=== PATIENT | female | born 1970 | race Caucasian/White ===

== ENCOUNTER 2022-05-02 19:18 | Emergency (ER) | payer OTHER, SELFPAY ==
--- NOTE | 2022-05-02 19:20 | XRR_ITS ---
PROCEDURE INFORMATION: Exam: XR Right Knee Exam date and time: 05/02/2022 7:37 PM Age: 51 years old Clinical indication: Injury or trauma; Fall; Other: Merrick a pop in her knee while she was breaking up a dog fight. Cant put weight on it TECHNIQUE: Imaging protocol: Radiologic exam of the Right knee. Views: 3 views. COMPARISON: No relevant prior studies available. FINDINGS: Bones/joints: Mild tricompartmental osteoarthritis of the knee. Soft tissues: Normal. XR/XR knee RT 3V* [id number] IMPRESSION: 1. Negative for fracture or dislocation 2. Mild tricompartmental osteoarthritis of the knee.
[2022-05-02 19:21] VITALS: BP 153/87; PULSE 95; RESP 20; TEMP 36.4; O2SAT 96; BMI 41.1
[2022-05-02] MEDS: HYDROcodone-acetaminophen 7.5-325 mg Tablet 1 TAB PO (20:50)
--- NOTE | 2022-05-02 20:50 | W.ED.EXTPRO ---
HPI - Extremity Problem General: Chief complaint: Extremity Injury, Lower Stated complaint: Rt Knee Popped\Pain\Panic Attacks Time Seen by Provider: 05/02/22 19:51 History of Present Illness: Patient is a 51-year-old female comes to the ED with right knee injury. Patient has some underlying right knee pain before injury today. She states she was trying to break up a fight between dogs and she twisted her right knee and now she has 10 out of 10 pain in her right knee. Pain is located on the lateral aspect of knee. She cannot weight-bear on the knee due to pain. Associated symptoms: Deny chest pain, fever(s) or rash Review of Systems Const: Denies: fever(s), chills or fatigue Eyes: Denies: change in vision or eye discomfort ENMT: Denies: throat pain, odynophagia, nasal discharge or nasal congestion Card: Denies: chest pain, palpitations, edema, swelling of feet/ankles, dyspnea on exertion or orthopnea Resp: Denies: dyspnea, productive cough or non-productive cough GI: Denies: abdominal pain, nausea, vomiting, diarrhea, constipation or hematochezia : Denies: flank pain, dysuria or hematuria Musc: Reports: extremity pain (Right knee) and limited range of motion (Right knee); Denies: neck pain, back pain or extremity swelling Skin/Breast: Denies: rash or new lesions Neuro: Denies: headache(s), numbness in extremities or weakness in extremities [facility] ED PFSH: Medical History (Updated 05/03/22 @ 00:55 by YURY Kat) No pertinent family history Surgical History (Updated 05/03/22 @ 00:55 by YURY Kat) No pertinent past surgical history Physical Exam Const: COMMON NORMALS: patient oriented x3 and alert GENERAL APPEARANCE: cooperative HENMT: COMMON NORMALS: normocephalic HEAD & SCALP: normocephalic MOUTH: Normal oral and palatal mucosa present THROAT: posterior oropharynx normal and uvula midline Neck/C-Spine: COMMON NORMALS: supple GENERAL: Yes normal visual inspection Resp: COMMON NORMALS: normal respiratory effort, No retractions, No use of accessory muscles and clear to auscultation bilaterally AUSCULTATION: clear to auscultation bilaterally Cardio: COMMON NORMALS: regular rate, regular rhythm, S1 normal heart sound present, S2 normal heart sound present, No gallops present (Cardio), No clicks present (Cardio), No murmurs present (Cardio) and Peripheral pulses 2+ throughout RATE: regular rate RHYTHM: regular rhythm HEART SOUNDS: S1 normal heart sound present and S2 normal heart sound present PERIPHERAL PULSES: Peripheral pulses 2+ throughout GI: COMMON NORMALS: Normal to inspection, nondistended, normoactive bowel sounds present, Soft to palpation, non-tender and no masses PALPATION: Yes Soft to palpation : COMMON NORMALS: Yes no CVA tenderness BLADDER/KIDNEY EXAM: Yes no CVA tenderness Back/Pelvis: COMMON NORMALS: no CVA tenderness Extremity: NARRATIVE EXTREMITY EXAM: Right knee?tenderness over lateral aspect of knee. No visible swelling noted. Limited range of motion due to pain. Neurovascular intact distally. Neuro: COMMON NORMALS: patient oriented x3 SENSORIUM/ORIENTATION: Yes alert GAIT: Yes Normal gait present Skin: GENERAL SKIN EXAM: dry skin Course Vital Signs: Vital signs: Vital Signs Temperature 97.6 F 05/02/22 19:21 Pulse Rate 95 05/02/22 19:21 Respiratory Rate 20 H 05/02/22 19:21 Blood Pressure 153/87 05/02/22 19:21 Pulse Oximetry 96 05/02/22 19:21 Oxygen Delivery Me thod 05/02/22 19:21 MDM - Extremity (Nontraumatic) Medical Decision Making Patient is a 51-year-old female comes to the ED with right knee injury. Patient has some underlying right knee pain before injury today. She states she was trying to break up a fight between dogs and she twisted her right knee and now she has 10 out of 10 pain in her right knee. Pain is located on the lateral aspect of knee. She is having trouble ambulating vitals are stable. Right knee?tenderness over lateral aspect of knee. Limited range of motion due to pain. Neurovascular intact distally. X-ray of right knee shows no acute fractures or dislocations. Imaging shows some mild tricompartmental osteoarthritis of the knee. I placed an order with case management for patient to be referred to Ortho for further evaluation of right knee injury. She was stable for discharge home and sent with some crutches and a prescription for pain medication. Return to ED precautions given. Patient understood and agree with plan Lab Data Radiology Impressions Knee X-Ray 05/02/22 19:20 IMPRESSION: 1. Negative for fracture or dislocation 2. Mild tricompartmental osteoarthritis of the knee. Discharge Plan Discharge Patient Disposition: Home Clinical Impression: Injury of knee, right Qualifiers: Encounter type: initial encounter Qualified Code(s): S89.91XA - Unspecified injury of right lower leg, initial encounter Condition: Stable Discharge Orders: Discharge ED (Routine); Ordered 05/02/22 Ordered By: Ferny Fernando Referrals: Cris Nobles MD [Primary Care Provider] - Discharge Diet: Regular Discharge Activity: Limit activity as instructed and Use walker/crutches as instructed Patient Instructions: Knee Pain (ED), Opioid Safety Activity Restrictions/Additional Instructions: Follow-up with medical provider as directed. Case management should be contacting you in the next several days to set up an appointment with Or Take medications as prescribed. Return to the ER or your medical provider if condition worsens. Please read and understand discharge instructions. Thank you for choosing [facility] for your healthcare needs today. Please realize this is an emergency room and that we are providing you with a medical screening exam and this may not be complete and all inclusive of all the testing and or work up that you may need to determine your ailment or severity of your illness. It is very important that you follow up as instructed or that you return to the Emergency Department should you have concerns or if your condition changes or worsens in any way. Coding Level of Care Code ED Clearing Tub Worker for Rosa Maria Miller
--- NOTE | 2022-05-03 10:30 | DCPLANNER ---
Addendum entered by Juany Edmond 05/19/22 08:33: Patient had a follow up appointment scheduled with ortho - patient did attend appointment. Original Note: manager summer had message to schedule a follow up appointment for patient with ortho. manager summer sent patients information to the front office staff at ortho. Patients information will be printed and reviewed. Clinic will call patient with appointment information.
== END 2022-05-02 20:01 | disposition home or self-care (01) ==
PROVIDERS: Emergency Provider Physician Assistant; PCP Family Medicine
DX: S89.91XA Unspecified injury of right lower leg, initial encounter (principal); M17.11 Unilateral primary osteoarthritis, right knee; X50.1XXA Overexertion from prolonged static or awkward postures, initial encounter
CPT/HCPCS: 73562; 99283; E0114

== ENCOUNTER 2022-06-27 08:31 | Outpatient (CLI) | payer OTHER, SELFPAY ==
--- NOTE | 2022-06-27 08:54 | MR_ITS ---
WS: [id number] MRI RIGHT KNEE NONCONTRAST TECHNIQUE: Axial PD, coronal PD fat sat, coronal PD, sagittal PD, and sagittal PD fat-sat images obta ined. CLINICAL INFORMATION: knee pain COMPARISON: None. FINDINGS: Distal quadriceps and patella tendons are intact. Hypertrophic patella. Moderate tricompartmental art hritis. Normal ACL and PCL. Chronic thinning of the medial and lateral meniscus. No acute appearing m eniscal tears. Peripheral extrusion of the medial meniscus. Edema in the medial tibial plateau consistent with rece nt contusion. Additional suggestion of tiny nondisplaced fracture best seen on the T1 imaging. Medial and lateral collateral ligaments appear intact. Advanced chondromalacia patella. Subchondral edema w ithin the patella. Normal popliteal fossa. Tiny suprapatellar effusion. MR/MR knee RT wo con* [id number] IMPRESSION: 1. ACL and PCL are intact. 2. No acute appearing meniscal tears. Peripheral extrusion medial meniscus wit h chronic thinning. 3. Edema involving the medial tibial plateau consistent with recent contusion with tiny nondisplaced fracture best seen on the T1 imaging. Minimal depression measuring 1 to 2 mm. Associated soft tissue edema about the medial tibial plat eau. 4. Advanced chondromalacia patella with subchondral edema involving the patell a. 5. Medial and lateral collateral ligaments are intact. 6. Tiny joint effusion. Outbridge grading: grade IV: full-thickness cartilage loss with underlying bone reactive changes
== END 2022-06-27 08:32 | disposition home or self-care (01) ==
LOC: RAD 08:42
PROVIDERS: PCP Family Medicine; Visit Provider Orthopaedic Surgery
DX: S89.90XA Unspecified injury of unspecified lower leg, initial encounter (principal); M22.41 Chondromalacia patellae, right knee; X58.XXXA Exposure to other specified factors, initial encounter; Y93.9 Activity, unspecified; Y92.9 Unspecified place or not applicable; Y99.9 Unspecified external cause status
CPT/HCPCS: 73721

== ENCOUNTER 2022-07-21 16:18 | Outpatient (RCR) | payer OTHER, SELFPAY | END 2022-08-10 23:59 | disposition home or self-care (01) | LOC: SPT 16:18 | PROVIDERS: PCP Family Medicine; Visit Provider Orthopaedic Surgery | DX: M25.561 Pain in right knee (principal) | CPT/HCPCS: 97110; 97161 ==

== ENCOUNTER 2022-10-14 10:06 | Emergency (ER) | payer OTHER, SELFPAY ==
[2022-10-14 10:22] VITALS: BP 176/103; PULSE 79; RESP 17; TEMP 36.5; O2SAT 96; BMI 43.7
[2022-10-14 10:59] LABS: Basophils % 0.4 %; Eosinophils # 0.2 10^3/uL (0.0-0.8); Eosinophils % 2.9 %; Lymphocytes # 1.6 10^3/uL (0.8-4.8); Lymphocytes % 20.9 %; Mean Corpuscular HGB Conc 32.4 g/dL (30.0-36.0); Mean Corpuscular Hemoglobin 28.4 pg (28.0-34.0); Mean Corpuscular Volume 87.7 fl (81-99); Mean Platelet Volume 9.5 fL (7.4-10.4); Monocytes # 0.4 10^3/uL (0.2-0.9); Monocytes % 5.6 %; Neutrophils # 5.33 10^3/uL (1.8-7.7); Neutrophils % 69.9 %; Nucleated Red Blood Cells % 0 %; Platelet Count 283 10^3/cmm (130-400); Red Blood Count 4.22 10^6/uL (4.1-5.3); Red Cell Distribution Width 12.7 % (12.1-15.1); White Blood Count 7.6 10^3/uL (4.0-10.0)
--- NOTE | 2022-10-14 11:07 | US_ITS ---
WS: [id number] RIGHT UPPER QUADRANT ULTRASOUND HISTORY: right side abdominal pain COMPARISON: 12/23/2013 Very limited evaluation of the RIGHT upper quadrant due to body habitus. Liver: 20.8 cm in length. Markedly enlarged liver. The entire liver is not well visualized due to att enuation. There is hepatic steatosis. No mass identified and no bile duct dilatation. Portal Vein: Normal hepatopetal flow with monophasic waveform. Gallbladder: Status post cholecystectomy. CBD: 0.4 cm Pancreas: Poorly visualized. Right kidney: 12.3 cm in length. Normal size and echogenicity. No hydronephrosis or mass. Aorta and IVC: Negative. No ascites. US/US abdomen limited [id number] IMPRESSION: 1. Technically difficult evaluation of the abdomen. 2. Prior cholecystectomy. 3. Marked hepatic steatosis and hepatomegaly. 4. No ascites is evident.
[2022-10-14 11:10] LABS: Alanine Aminotransferase 47 U/L (0-33); Albumin Level 4.1 g/dL (3.5-5.2); Alkaline Phosphatase 73 U/L (35-105); Anion Gap 15.8 (5-19); Aspartate Amino Transferase 44 U/L (0-32); Blood Urea Nitrogen 12 mg/dL (6-20); Carbon Dioxide 25 mmol/L (22-29); Chloride 101 mmol/L (98-107); Globulin 2.6 g/dL (1.3-4.6); Glomerular Filtration Rate 88.6 mL/min (90-130); Glucose 145 mg/dL (65-115); Lipase 21 U/L (13-60); Osmolality Calculated 288 mOsm/kg (285-295); Potassium 3.8 mmol/L (3.5-5.1); Sodium 138 mmol/L (136-145); Total Bilirubin 0.2 mg/dL (0.15-1.2); Total Protein 6.7 g/dL (6.6-8.7)
[2022-10-14 11:11] VITALS: BP 142/92; PULSE 71; O2SAT 97
[2022-10-14 11:28] LABS: Add Urine Microscopic? NO; Charge for UA Resulting for Rev
[2022-10-14 11:31] LABS: Urine Appearance Clear (CLEAR); Urine Color Yellow (Yellow)
[2022-10-14 11:32] LABS: Bilirubin Urine Neg (Negative); Blood Urine Neg (Negative); Glucose Urine UA Norm (Normal); Ketones Urine Negative (Negative); Leukocyte Esterase Urine Negative (Negative); Nitrate Urine Negative (Negative); Protein Urine Neg (Negative); Urobilinogen Urine Norm (Negative); pH Urine 6 (5-7)
[2022-10-14] MEDS: ondansetron 2 mg/ML SDV 2 mL 4 MG IVP (11:42)
[2022-10-14 11:45] VITALS: RESP 14; O2SAT 96
[2022-10-14] MEDS: morphine 4 mg/mL SDV 1 mL IVP (11:45)
[2022-10-14 12:00] VITALS: BP 175/113; PULSE 69; O2SAT 97
[2022-10-14 12:30] VITALS: BP 156/98; PULSE 68; O2SAT 97
[2022-10-14] MEDS: ketorolac 30 mg/mL INJ IVP (13:13)
[2022-10-14 13:23] VITALS: BP 143/94; PULSE 65; O2SAT 93
--- NOTE | 2022-10-14 15:21 | ED_ITS ---
HPI - Abdominal Pain General: Chief Complaint: Abdominal Pain Stated Complaint: abd pain Time Seen by Provider: 10/14/22 10:10 History of Present Illness: Patient is in for abdominal pain. She reports that last week she had a severe cough and was coughing uncontrollably. She reports that during that she started having right-sided abdominal pain near her umbilicus. She reports that she did go get on medication which she is started for the cough and the sinus infection. She states that her pain over the past 2 days has worsened significantly in her abdomen. She denies any fever, chills, nausea, vomiting. She reports the pain is worse with palpation or jarring movements. Associated Symptoms: Denies chills, constipation, diarrhea, dysuria, fever(s), nausea and vomiting Review of Systems Const: Denies: fever(s), chills or body aches Card: Denies: chest pain or palpitations Resp: Reports: non-productive cough; Denies: dyspnea or productive cough GI: Reports: abdominal pain; Denies: nausea, vomiting, diarrhea or constipation : Denies: flank pain, difficulty voiding or dysuria PFS ED PFSH: Medical History No pertinent family history Surgical History No pertinent past surgical history Physical Exam Const: COMMON NORMALS: no acute distress, patient oriented x3 and alert Neck/C-Spine: COMMON NORMALS: no JVD Resp: COMMON NORMALS: normal respiratory effort, No use of accessory muscles and clear to auscultation bilaterally AUSCULTATION: clear to auscultation bilaterally Cardio: COMMON NORMALS: no JVD, regular rate, regular rhythm, S1 normal heart sound present and S2 normal heart sound present RATE: regular rate RHYTHM: regular rhythm HEART SOUNDS: S1 normal heart sound present and S2 normal heart sound present GI: COMMON NORMALS: Normal to inspection, nondistended, normoactive bowel sounds present and Soft to palpation PALPATION: Yes Soft to palpation OTHER: Patient has tenderness just to the right of her umbilicus. There is no rebound tenderness appreciated negative for tenderness at McBurney's point. Negative for right upper quadrant abdominal pain. No obvious mass palpated. Neuro: COMMON NORMALS: patient oriented x3 SENSORIUM/ORIENTATION: Yes alert Course Vital Signs: Vital signs: Vital Signs Temperature 97.7 F 10/14/22 10:22 Pulse Rate 65 10/14/22 13:23 Respiratory Rate 14 10/14/22 11:45 Blood Pressure 143/94 10/14/22 13:23 Pulse Oximetry 93 10/14/22 13:23 Oxygen Delivery Me thod Room Air 10/14/22 10:22 MDM - Abdominal Pain Medical Decision Making Patient is in for abdominal pain that started with extreme coughing. Labs do not indicate any acute bacterial infection. AST and ALT are slightly elevated. Ultrasound abdomen does not indicate any acute changes. Ultrasound does note marked hepatic steatosis and hepatomegaly. I had a lengthy discussion with patient regarding differentials including appendicitis, hernia, muscle strain from coughing. I advised the patient that there is no laboratory evidence suggesting appendicitis and her physical exam finding is also not suggestive of appendicitis although it cannot be ruled out without CT scan. We discussed the risk of radiation outweighing the potential benefit at this time; however, patient understands that should she develop fever, chills, nausea, vomiting, worsening abdominal pain then she should report back to the ER for immediate further evaluation. I advised patient that I did not appreciate a hernia on physical exam and military administrative technician did not appreciate a hernia on the ultrasound. I advised patient that I suspect this is a musculoskeletal injury from forceful coughing. We discussed conservative treatments at home for this. Follow-up with your primary care provider next week. Return to the ER as needed for any new or worsening symptoms Lab Data 10/14/22 10:36 10/14/22 10:36 Labs/Radiology: Radiology Impressions Abdomen Ultrasound 10/14/22 11:07 IMPRESSION: 1. Technically difficult evaluation of the abdomen. 2. Prior cholecystectomy. 3. Marked hepatic steatosis and hepatomegaly. 4. No ascites is evident. Laboratory Results WBC 7.6 10^3/uL (4.0-10.0) 10/14/22 10:36 RBC 4.22 10^6/uL (4.1-5.3) 10/14/22 10:36 Hgb 12.0 g/dL (11.5-15.3) 10/14/22 10:36 Hct 37.0 % (37.0-47.0) 10/14/22 10:36 MCV 87.7 fl (81-99) 10/14/22 10:36 MCH 28.4 pg (28.0-34.0) 10/14/22 10:36 MCHC 32.4 g/dL (30.0-36.0) 10/14/22 10:36 RDW 12.7 % (12.1-15.1) 10/14/22 10:36 Plt Count 283 10^3/cmm (130-400) 10/14/22 10:36 MPV 9.5 fL (7.4-10.4) 10/14/22 10:36 Neut % (Auto) 69.9 % 10/14/22 10:36 Lymph % (Auto) 20.9 % 10/14/22 10:36 [place] % (Auto) 5.6 % 10/14/22 10:36 Eos % (Auto) 2.9 % 10/14/22 10:36 Baso % (Auto) 0.4 % 10/14/22 10:36 Neut # (Auto) 5.33 10^3/uL (1.8-7.7) 10/14/22 10:36 Lymph # (Auto) 1.6 10^3/uL (0.8-4.8) 10/14/22 10:36 [place] # (Auto) 0.4 10^3/uL (0.2-0.9) 10/14/22 10:36 Eos # (Auto) 0.2 10^3/uL (0.0-0.8) 10/14/22 10:36 Baso # (Auto) 0.0 10^3/uL (0.0-0.1) 10/14/22 10:36 Nucleated RBC % (auto) 0 % 10/14/22 10:36 Nucleated RBCs # 0.0 /100WBC 10/14/22 10:36 Sodium 138 mmol/L (136-145) 10/14/22 10:36 Potassium 3.8 mmol/L (3.5-5.1) 10/14/22 10:36 Chloride 101 mmol/L (98-107) 10/14/22 10:36 Carbon Dioxide 25 mmol/L (22-29) 10/14/22 10:36 Anion Gap 15.8 (5-19) 10/14/22 10:36 BUN 12 mg/dL (6-20) 10/14/22 10:36 Creatinine 0.7 mg/dL (0.5-0.9) 10/14/22 10:36 GFR Calculation 88.6 mL/min (90-130) L 10/14/22 10:36 Glucose 145 mg/dL (65-115) H 10/14/22 10:36 Calculated Osmolality 288 mOsm/kg (285-295) 10/14/22 10:36 Calcium 9.0 mg/dL (8.5-10.5) 10/14/22 10:36 Total Bilirubin 0.2 mg/dL (0.15-1.2) 10/14/22 10:36 AST 44 U/L (0-32) H 10/14/22 10:36 ALT 47 U/L (0-33) H 10/14/22 10:36 Alkaline Phosphatase 73 U/L (35-105) 10/14/22 10:36 Total Protein 6.7 g/dL (6.6-8.7) 10/14/22 10:36 Albumin 4.1 g/dL (3.5-5.2) 10/14/22 10:36 Globulin 2.6 g/dL (1.3-4.6) 10/14/22 10:36 Lipase 21 U/L (13-60) 10/14/22 10:36 Urine Color Yellow (Yellow) 10/14/22 11:24 Urine Appearance Clear (CLEAR) 10/14/22 11:24 Urine pH 6 (5-7) 10/14/22 11:24 Ur Specific [place] 1.020 (1.005-1.030) 10/14/22 11:24 Urine Protein Neg (Negative) 10/14/22 11:24 Urine Glucose (UA) Norm (Normal) 10/14/22 11:24 Urine Ketones Negative (Negative) 10/14/22 11:24 Urine Blood Neg (Negative) 10/14/22 11:24 Urine Nitrate Negative (Negative) 10/14/22 11:24 Urine Bilirubin Neg (Negative) 10/14/22 11:24 Urine Urobilinogen Norm mg/dL (Negative) 10/14/22 11:24 Ur Leukocyte Esterase Negative (Negative) 10/14/22 11:24 Discharge Plan Discharge Patient Disposition: Home Clinical Impression: Abdominal pain Condition: Stable Prescriptions: No Action azithromycin 250 mg tablet See Rx Instructions .ROUTE .COMPLEX Rx Instructions: 2 TABLETS BY MOUTH ON DAY 1, THEN 1 TABLET DAILY FOR 5 DAYS lisinopril 20 mg tablet 20 mg PO BID amlodipine 2.5 mg tablet 2.5 mg PO DAILY benzonatate 100 mg capsule 100 mg PO TID PRN (Reason: Cough) escitalopram oxalate 20 mg tablet 20 mg PO DAILY Discharge Orders: Discharge ED (Routine); Ordered 10/14/22 Ordered By: Hannah Durham Referrals: Cris Nobles MD [Primary Care Provider] - Discharge Diet: Usual diet Discharge Activity: Increase activity as tolerated Patient Instructions: Abdominal Pain (ED) Activity Restrictions/Additional Instructions: Your labs did not show any evidence of acute bacterial infection. Your ultrasound did not show evidence of any acute abnormality. You did have fatty liver disease noted on the ultrasound. I recommend a low-fat low-cholesterol diet to help with this. I suspect that your abdominal pain is musculoskeletal from persistent coughing. You may use [id number] Tylenol and Motrin as needed for pain. Follow-up with your primary care provider next week for reevaluation. Return to the ER for new or worsening symptoms including, but not limited to, increased pain, fever, chills, vomiting. Coding Level of Care Code ED Hunter for Rosa Maria Miller
== END 2022-10-14 13:26 | disposition home or self-care (01) ==
PROVIDERS: Emergency Provider Nurse Practitioner Family; PCP Family Medicine
DX: R10.33 Periumbilical pain (principal)
CPT/HCPCS: 76705; 80053; 81003; 83690; 85025; 96374; 96375; 99284; J1885; J2270; J2405

== ENCOUNTER 2022-10-19 11:06 | Emergency (ER) | payer OTHER, SELFPAY ==
[2022-10-19 11:28] VITALS: BP 184/78; PULSE 68; RESP 15; TEMP 37; O2SAT 97
--- NOTE | 2022-10-19 11:57 | CTR_ITS ---
PROCEDURE INFORMATION: Exam: CT Abdomen And Pelvis With Contrast Exam date and time: 10/19/2022 12:42 PM Age: 52 years old Clinical indication: Abdominal pain; Generalized; Additional info: Abd pain n/v TECHNIQUE: Imaging protocol: Computed tomography of the abdomen and pelvis with contrast. Radiation optimization: All CT scans at this facility use at least one of these dose optimization techniques: automated exposure control; mA and/or kV adjustment per patient size (includes targeted exams where dose is matched to clinical indication); or iterative reconstruction. Contrast material: OMNI 350; Contrast volume: 100 ml; Contrast route: INTRAVENOUS (IV); REPORTING DATA: Count of CT and Cardiac NM exams in prior 12 months: This patient has received 0 known CTs and 0 known cardiac nuclear medicine studies in the 12 months prior to the current study. COMPARISON: abdomen limited [id number] 10/14/2022 11:34 AM RADIATION DOSE METRICS: Total DLP (mGy-cm): 1183.33 FINDINGS: Lungs: Lung bases are clear. Diaphragm: There is a small sliding-type hiatal hernia. Liver: There is diffuse low-attenuation of the liver relative to the spleen consistent with fatty infiltration. There is no focal liver abnormality. Gallbladder and bile ducts: The gallbladder is absent. There is no intrahepatic or extrahepatic bile duct dilation. Pancreas: The pancreas is unremarkable. Spleen: The spleen is unremarkable. Adrenal glands: Intermediate density left adrenal nodule measures 16 x 12 mm. Kidneys and ureters: There is a simple cyst in the right kidney. There is no hydronephrosis or ureteral dilation. The left kidney and ureter are unremarkable. Stomach and bowel: The stomach is decompressed, preventing meaningful evaluation of wall thickness. The small bowel is nondilated. There is moderate diverticulosis of the distal descending and sigmoid colon. There is focal diverticular wall thickening and subtle pericolonic edema and fascial thickening in the proximal sigmoid. See axial series 3, image 71, coronal series 5, image 26 and sagittal series 6, image 32. The rectum is unremarkable. Appendix: The appendix is normal. Intraperitoneal space: There is no free air or significant intraperitoneal free fluid. No extraluminal gas or fluid collection. Vasculature: The aorta is unremarkable. There is no aneurysm. The portal, splenic and superior mesenteric veins are patent. Lymph nodes: There is no lymphadenopathy in the retroperitoneum, mesentery, pelvis or inguinal regions. Urinary bladder: The urinary bladder is unremarkable. Reproductive: The uterus is absent. There is no adnexal mass or large cyst. Bones/joints: Bones are unremarkable. Soft tissues: The abdominal wall is intact. There is mild asymmetric edema in the superficial fat of the mid abdominal wall near midline and to the right. There is mild asymmetric hypoattenuation and thickening of right rectus abdominus muscle. CT/CT abdomen pelvis w con* [id number] IMPRESSION: 1. Subcutaneous and right rectus abdominus muscular edema in the ventral abdominal wall. Nonspecific finding. This could be related to direct contusion, myofascial tear, or cellulitis/myositis. Correlate with physical exam findings and clinical history. 2. Uncomplicated sigmoid diverticulitis. 3. Hepatic steatosis. 4. Intermediate density 12 mm left adrenal nodule. Consider 12 month follow-up adrenal CT. (Reference: Dmitriy) 5. Incidental findings above. COMMENTS: Consistent with the [employer]'s Incidental Findings Committee white paper (J Am Meag Radiol 2018): Any incidental renal lesion less than 1 cm or classified as too small to characterize, or any incidental cystic renal lesion characterized as simple-appearing, is likely benign. No follow-up imaging is recommended for these lesions per consensus recommendations based on imaging criteria. REFERENCES: Dmitriy MONK, et al. Management of Incidental Adrenal Masses: A White Paper of the ACR Incidental Findings Committee. J Am Mega Radiol. 2017;14(8):4936-1790.
[2022-10-19 11:58] VITALS: RESP 18; O2SAT 98
--- NOTE | 2022-10-19 12:08 | W.ED.ABDPA2 ---
HPI - Abdominal Pain General: Chief Complaint: Abdominal Pain Stated Complaint: ab pain Time Seen by Provider: 10/19/22 11:14 History of Present Illness: Presents to the ER with worsening abdominal pain specially she coughs. Patient says it feels like something pops out and when she is done coughing feels like it slides back in. Patient was seen approximately 4 days ago and worked up for abdominal pain which included lab work and an ultrasound of the right upper quadrant all this was essentially negative. Patient has never had a history of a hernia. This pain is localized to the right side of her abdomen in the middle of her abdomen. Review of Systems General: Reports: 10 or more systems reviewed and unremarkable except in HPI and below PFSH ED PFSH: Medical History No pertinent family history Surgical History No pertinent past surgical history Physical Exam Const: COMMON NORMALS: no acute distress, average body habitus, patient oriented x3, no limitations, healthy appearing, alert and well nourished HENMT: COMMON NORMALS: normocephalic, atraumatic, hearing grossly normal bilaterally, external ears normal, Normal external nose present and moist oral mucous membranes HEAD & SCALP: normocephalic and atraumatic NOSE: Normal external nose present EXTERNAL EAR: Yes external ears normal Neck/C-Spine: COMMON NORMALS: full ROM, no lymphadenopathy, supple, no meningeal signs, no JVD and Thyroid normal THYROID: Thyroid normal Chest: COMMONS NORMALS: normal inspection of the chest and normal palpation of entire chest wall Resp: COMMON NORMALS: normal respiratory effort, No retractions, No use of accessory muscles and clear to auscultation bilaterally AUSCULTATION: clear to auscultation bilaterally Cardio: COMMON NORMALS: no JVD, regular rate, regular rhythm, S1 normal heart sound present, S2 normal heart sound present, No gallops present (Cardio), No clicks present (Cardio) and No murmurs present (Cardio) RATE: regular rate RHYTHM: regular rhythm HEART SOUNDS: S1 normal heart sound present and S2 normal heart sound present GI: COMMON NORMALS: Normal to inspection, nondistended, normoactive bowel sounds present, Soft to palpation, non-tender (Pinpoint tenderness with small superficial feeling mass located in right ab), No hepatosplenomegaly present and no masses PALPATION: Yes Soft to palpation and Yes No hepatosplenomegaly present : COMMON NORMALS: Yes no CVA tenderness BLADDER/KIDNEY EXAM: Yes no CVA tenderness Back/Pelvis: COMMON NORMALS: no CVA tenderness Neuro: COMMON NORMALS: patient oriented x3 SENSORIUM/ORIENTATION: Yes alert MENINGEAL SIGNS: Yes no meningeal signs Course Vital Signs: Vital signs: Vital Signs Temperature 98.6 F 10/19/22 11:28 Pulse Rate 68 10/19/22 11:28 Respiratory Rate 16 10/19/22 13:00 Blood Pressure 184/78 10/19/22 11:28 Pulse Oximetry 98 10/19/22 11:58 Oxygen Delivery Me thod Room Air 10/19/22 11:28 MDM - Abdominal Pain Medical Decision Making Presents to the ER with complaints of right sided middle abdominal pain. This is worse when she coughs and is improved when she puts pressure on it. Patient had a workup 4 days ago which was negative. Patient had a repeat workup today with blood work and abdomen pelvis CT scan which showed possible myofascial tear with subcu edema in the right rectus abdominal musculature. Is where the patient is tender at. This was discussed with the patient that we cannot guarantee that this not a hernia but it is probably more likely a torn muscle. Patient is comfortable with going home on pain medicine and watching it for another week or 2. Patient knows that if it does not get better she may need to go to a surgeon for further evaluation and treatment. Patient be discharged home with pain medicine. Differential Diagnosis Likely abdominal pain; Unlikely acute appendicitis, calculus of kidney, constipation, diverticulitis, endometriosis, gastroenteritis, pancreatitis or small bowel obstruction Medical Records I reviewed the patient's medical records. Lab Data I reviewed the patient's lab results. 10/19/22 12:19 10/19/22 12:19 Labs/Radiology: Radiology Impressions Abdomen/Pelvis CT 10/19/22 11:57 IMPRESSION: 1. Subcutaneous and right rectus abdominus muscular edema in the ventral abdominal wall. Nonspecific finding. This could be related to direct contusion, myofascial tear, or cellulitis/myositis. Correlate with physical exam findings and clinical history. 2. Uncomplicated sigmoid diverticulitis. 3. Hepatic steatosis. 4. Intermediate density 12 mm left adrenal nodule. Consider 12 month follow-up adrenal CT. (Reference: Dmitriy) 5. Incidental findings above. COMMENTS: Consistent with the [employer]'s Incidental Findings Committee white paper (J Am Mega Radiol 2018): Any incidental renal lesion less than 1 cm or classified as too small to characterize, or any incidental cystic renal lesion characterized as simple-appearing, is likely benign. No follow-up imaging is recommended for these lesions per consensus recommendations based on imaging criteria. REFERENCES: Dmitriy MONK, et al. Management of Incidental Adrenal Masses: A White Paper of the ACR Incidental Findings Committee. J Am Mega Radiol. 2017;14(8):6664-7716. Laboratory Results WBC 8.3 10^3/uL (4.0-10.0) 10/19/22 12:19 RBC 4.24 10^6/uL (4.1-5.3) 10/19/22 12:19 Hgb 12.4 g/dL (11.5-15.3) 10/19/22 12:19 Hct 37.8 % (37.0-47.0) 10/19/22 12:19 MCV 89.2 fl (81-99) 10/19/22 12:19 MCH 29.2 pg (28.0-34.0) 10/19/22 12:19 MCHC 32.8 g/dL (30.0-36.0) 10/19/22 12:19 RDW 12.9 % (12.1-15.1) 10/19/22 12:19 Plt Count 317 10^3/cmm (130-400) 10/19/22 12:19 MPV 9.3 fL (7.4-10.4) 10/19/22 12:19 Neut % (Auto) 66.8 % 10/19/22 12:19 Lymph % (Auto) 23.4 % 10/19/22 12:19 [place] % (Auto) 6.2 % 10/19/22 12:19 Eos % (Auto) 2.7 % 10/19/22 12:19 Baso % (Auto) 0.5 % 10/19/22 12:19 Neut # (Auto) 5.52 10^3/uL (1.8-7.7) 10/19/22 12:19 Lymph # (Auto) 1.9 10^3/uL (0.8-4.8) 10/19/22 12:19 [place] # (Auto) 0.5 10^3/uL (0.2-0.9) 10/19/22 12:19 Eos # (Auto) 0.2 10^3/uL (0.0-0.8) 10/19/22 12:19 Baso # (Auto) 0.0 10^3/uL (0.0-0.1) 10/19/22 12:19 Nucleated RBC % (auto) 0 % 10/19/22 12:19 Nucleated RBCs # 0.0 /100WBC 10/19/22 12:19 Sodium 140 mmol/L (136-145) 10/19/22 12:19 Potassium 4.1 mmol/L (3.5-5.1) 10/19/22 12:19 Chloride 102 mmol/L (98-107) 10/19/22 12:19 Carbon Dioxide 28 mmol/L (22-29) 10/19/22 12:19 Anion Gap 14.1 (5-19) 10/19/22 12:19 BUN 13 mg/dL (6-20) 10/19/22 12:19 Creatinine 0.6 mg/dL (0.5-0.9) 10/19/22 12:19 GFR Calculation 105.8 mL/min (90-130) 10/19/22 12:19 Glucose 106 mg/dL (65-115) 10/19/22 12:19 Calculated Osmolality 291 mOsm/kg (285-295) 10/19/22 12:19 Calcium 8.9 mg/dL (8.5-10.5) 10/19/22 12:19 Total Bilirubin 0.2 mg/dL (0.15-1.2) 10/19/22 12:19 AST 20 U/L (0-32) 10/19/22 12:19 ALT 36 U/L (0-33) H 10/19/22 12:19 Alkaline Phosphatase 75 U/L (35-105) 10/19/22 12:19 Total Protein 7.0 g/dL (6.6-8.7) 10/19/22 12:19 Albumin 4.3 g/dL (3.5-5.2) 10/19/22 12:19 Globulin 2.7 g/dL (1.3-4.6) 10/19/22 12:19 Lipase 41 U/L (13-60) 10/19/22 12:19 Urine Color Yellow (Yellow) 10/19/22 12:19 Urine Appearance Clear (CLEAR) 10/19/22 12:19 Urine pH 7 (5-7) 10/19/22 12:19 Ur Specific [place] 1.005 (1.005-1.030) 10/19/22 12:19 Urine Protein Neg (Negative) 10/19/22 12:19 Urine Glucose (UA) Norm (Normal) 10/19/22 12:19 Urine Ketones Negative (Negative) 10/19/22 12:19 Urine Blood Neg (Negative) 10/19/22 12:19 Urine Nitrate Negative (Negative) 10/19/22 12:19 Urine Bilirubin Neg (Negative) 10/19/22 12:19 Urine Urobilinogen Norm mg/dL (Negative) 10/19/22 12:19 Ur Leukocyte Esterase Negative (Negative) 10/19/22 12:19 Discharge Plan Discharge Patient Disposition: Home Clinical Impression: Abdominal wall pain Condition: Stable Prescriptions: New benzonatate 100 mg capsule 100 mg PO Q6H PRN (Reason: cough) Qty: 30 0RF hydrocodone-acetaminophen 5-325 mg tablet 1 tab PO Q8H PRN (Reason: pain) Qty: 14 0RF No Action azithromycin 250 mg tablet See Rx Instructions .ROUTE .COMPLEX Rx Instructions: 2 TABLETS BY MOUTH ON DAY 1, THEN 1 TABLET DAILY FOR 5 DAYS lisinopril 20 mg tablet 20 mg PO BID amlodipine 2.5 mg tablet 2.5 mg PO QAM escitalopram oxalate 20 mg tablet 20 mg PO QAM alprazolam 0.5 mg tablet 0.25 mg PO TID PRN (Reason: Anxiety) ibuprofen 200 mg Tablet 800 mg PO Q6H PRN (Reason: Pain) Vicks DayQuil Cold-Flu Relief 5-10-325 mg/15 mL Liquid 20 ml PO Q4H PRN (Reason: Cold Symptoms) Vicks NyQuil Cold/Flu (cpm) 4-30-650 mg/30 mL Liquid 20 ml PO Q4H PRN (Reason: Cold Symptoms) Discharge Orders: Discharge ED (Routine); Ordered 10/19/22 Ordered By: Heber Tran Referrals: Cris Nobles MD [Primary Care Provider] - 1 week Patient Instructions: Abdominal Pain (ED) Activity Restrictions/Additional Instructions: Please take your pain medicine and cough medicine as directed. Please follow-up with your family practice doctor in the next 1 to 2 weeks or sooner as needed. 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
[2022-10-19 12:31] LABS: Basophils % 0.5 %; Eosinophils # 0.2 10^3/uL (0.0-0.8); Eosinophils % 2.7 %; Hematocrit 37.8 % (37.0-47.0); Hemoglobin 12.4 g/dL (11.5-15.3); Lymphocytes # 1.9 10^3/uL (0.8-4.8); Lymphocytes % 23.4 %; Mean Corpuscular HGB Conc 32.8 g/dL (30.0-36.0); Mean Corpuscular Hemoglobin 29.2 pg (28.0-34.0); Mean Corpuscular Volume 89.2 fl (81-99); Mean Platelet Volume 9.3 fL (7.4-10.4); Monocytes # 0.5 10^3/uL (0.2-0.9); Monocytes % 6.2 %; Neutrophils # 5.52 10^3/uL (1.8-7.7); Neutrophils % 66.8 %; Nucleated Red Blood Cells % 0 %; Platelet Count 317 10^3/cmm (130-400); Red Blood Count 4.24 10^6/uL (4.1-5.3); Red Cell Distribution Width 12.9 % (12.1-15.1); White Blood Count 8.3 10^3/uL (4.0-10.0)
[2022-10-19 12:42] LABS: Add Urine Microscopic? NO; Charge for UA Resulting for Rev
[2022-10-19 12:47] LABS: Bilirubin Urine Neg (Negative); Blood Urine Neg (Negative); Glucose Urine UA Norm (Normal); Ketones Urine Negative (Negative); Leukocyte Esterase Urine Negative (Negative); Nitrate Urine Negative (Negative); Protein Urine Neg (Negative); Specific Gravity, Urine 1.005 (1.005-1.030); Urine Appearance Clear (CLEAR); Urine Color Yellow (Yellow); Urobilinogen Urine Norm (Negative); pH Urine 7 (5-7)
[2022-10-19 12:49] LABS: Alanine Aminotransferase 36 U/L (0-33); Albumin Level 4.3 g/dL (3.5-5.2); Alkaline Phosphatase 75 U/L (35-105); Anion Gap 14.1 (5-19); Aspartate Amino Transferase 20 U/L (0-32); Blood Urea Nitrogen 13 mg/dL (6-20); Calcium 8.9 mg/dL (8.5-10.5); Carbon Dioxide 28 mmol/L (22-29); Chloride 102 mmol/L (98-107); Globulin 2.7 g/dL (1.3-4.6); Glomerular Filtration Rate 105.8 mL/min (90-130); Glucose 106 mg/dL (65-115); Lipase 41 U/L (13-60); Osmolality Calculated 291 mOsm/kg (285-295); Potassium 4.1 mmol/L (3.5-5.1); Sodium 140 mmol/L (136-145); Total Bilirubin 0.2 mg/dL (0.15-1.2)
[2022-10-19 13:00] VITALS: RESP 16
[2022-10-19] MEDS: ketorolac 30 mg/mL INJ IVP (13:47)
[2022-10-19 14:14] VITALS: PULSE 87; RESP 16; O2SAT 97
== END 2022-10-19 14:16 | disposition home or self-care (01) ==
PROVIDERS: Emergency Provider Emergency Medicine; PCP Family Medicine
DX: R10.11 Right upper quadrant pain (principal); Z79.899 Other long term (current) drug therapy
CPT/HCPCS: 74177; 80053; 81003; 83690; 85025; 96374; 99285; J1885; Q9967